=== PATIENT | female | born 1985 | race American Indian/Alaskan Native ===

== ENCOUNTER 2019-10-08 17:26 | Emergency (ER) | payer OTHER ==
[2019-10-08 17:39] VITALS: BP 133/82
--- NOTE | 2019-10-08 18:39 | Event Note ---
ED Screening Note Date of service: 10/08/19 Time: 18:35 ED Screening Note: 33 y o female presents to ED cc of chest pain and upper back pain x this morning pain was worse with lifting at work today This initial assessment/diagnostic orders/clinical plan/treatment(s) is/are subject to change based on patients health status, clinical progression and re- assessment by fellow clinical providers in the ED. Further treatment and workup at subsequent clinical providers discretion. Patient/guardian urged not to elope from the ED as their condition may be serious if not clinically assessed and managed. Initial orders include: cxr acc eval
--- NOTE | 2019-10-08 19:22 | Emergency Department Report ---
ED General Adult HPI - General Chief complaint: Chest Pain Stated complaint: CHEST PAIN/HEADACHE Time Seen by Provider: 10/08/19 19:02 Source: patient Mode of arrival: Ambulatory Limitations: No Limitations - History of Present Illness Initial comments: Patient is a 33-year-old female presents emergency room with complaints of chest pain that began this morning. She states that she started to have upper back pain yesterday. She states it is worse with movement. Patient states that she does a lot of heavy lifting at work. She states that she recently got over a cold. She denies any shortness of breath, pleuritic chest pain, nausea, vomiting, diarrhea, fever, leg swelling, recent travel, recent surgery. She denies any past medical history. She denies any allergies to medications. She states that she is on a oral control pill. She states her last menstrual cycle was last week. She states that her mother at 56 due to heart issues from diabetes complications. She is a non-smoker. She is an occasional drinker. She denies any drug use. - Related Data Previous Rx's Medication Instructions Recorded Last Taken Type Naproxen [EC-Naproxen] 500 mg PO BID PRN #14 tablet. 10/08/19 Unknown Rx methOCARBAMOL [Robaxin TAB] 500 mg PO QHS PRN #10 tab 10/08/19 Unknown Rx Allergies Allergy/AdvReac Type Severity Reaction Status Date / Time No Known Allergies Allergy Unverified 10/08/19 17:27 ED Review of Systems ROS: Stated complaint: CHEST PAIN/HEADACHE Other details as noted in HPI Comment: All other systems reviewed and negative ED Past Medical Hx - Past Medical History Previous Medical History?: No - Surgical History Past Surgical History?: No - Social History Smoking Status: Never Smoker Substance Use Type: None - Medications Home Medications: Home Medications Medication Instructions Recorded Confirmed Last Taken Type Naproxen [EC-Naproxen] 500 mg PO BID PRN #14 tablet. 10/08/19 Unknown Rx methOCARBAMOL [Robaxin TAB] 500 mg PO QHS PRN #10 tab 10/08/19 Unknown Rx ED Physical Exam - General Limitations: No Limitations General appearance: alert, in no apparent distress - Head Head exam: Present: atraumatic, normocephalic - Eye Eye exam: Present: normal appearance - ENT ENT exam: Present: mucous membranes moist - Neck Neck exam: Present: normal inspection, full ROM. Absent: tenderness - Respiratory Respiratory exam: Present: normal lung sounds bilaterally. Absent: respiratory distress, wheezes, rales, rhonchi, stridor, chest wall tenderness, accessory muscle use, decreased breath sounds, prolonged expiratory - Cardiovascular Cardiovascular Exam: Present: regular rate, normal rhythm, normal heart sounds. Absent: systolic murmur, diastolic murmur, rubs, gallop - Back Exam Back exam: Present: normal inspection, full ROM. Absent: paraspinal tenderness, vertebral tenderness - Neurological Exam Neurological exam: Present: alert, oriented X3, CN II-XII intact, normal gait. Absent: motor sensory deficit - Psychiatric Psychiatric exam: Present: normal affect, normal mood - Skin Skin exam: Present: warm, intact ED Course Vital Signs 10/08/19 10/08/19 10/08/19 17:38 18:36 20:37 Temperature 99.2 F 99.2 F Pulse Rate 98 H 100 H 88 Respiratory 20 20 16 Rate Blood Pressure 133/82 133/82 O2 Sat by Pulse 100 100 100 Oximetry ED Medical Decision Making - Lab Data Result diagrams: 10/08/19 19:17 10/08/19 19:17 Lab Results 10/08/19 10/08/19 10/08/19 Range/Units 19:17 19:17 19:17 WBC 7.0 (4.5-11.0) K/mm3 RBC 4.58 (3.65-5.03) M/mm3 Hgb 12.4 (10.1-14.3) gm/dl Hct 37.4 (30.3-42.9) % MCV 82 (79-97) fl MCH 27 L (28-32) pg MCHC 33 (30-34) % RDW 13.8 (13.2-15.2) % Plt Count 177 (140-440) K/mm3 Lymph % (Auto) 25.5 (13.4-35.0) % [place] % (Auto) 6.9 (0.0-7.3) % Eos % (Auto) 1.3 (0.0-4.3) % Baso % (Auto) 0.8 (0.0-1.8) % Lymph # 1.8 (1.2-5.4) K/mm3 [place] # 0.5 (0.0-0.8) K/mm3 Eos # 0.1 (0.0-0.4) K/mm3 Baso # 0.1 (0.0-0.1) K/mm3 Seg Neutrophils % 65.5 (40.0-70.0) % Seg Neutrophils # 4.6 (1.8-7.7) K/mm3 D-Dimer 137.30 (0-234) ng/mlDDU Sodium 140 (137-145) mmol/L Potassium 3.7 (3.6-5.0) mmol/L Chloride 104.0 (98-107) mmol/L Carbon Dioxide 22 (22-30) mmol/L Anion Gap 18 mmol/L BUN 11 (7-17) mg/dL Creatinine 0.8 (0.7-1.2) mg/dL Estimated GFR > 60 ml/min BUN/Creatinine Ratio 14 % Glucose 131 H (65-100) mg/dL Calcium 9.2 (8.4-10.2) mg/dL Magnesium 1.80 (1.7-2.3) mg/dL Total Bilirubin 0.20 (0.1-1.2) mg/dL AST 14 (5-40) units/L ALT 14 (7-56) units/L Alkaline Phosphatase 54 (35-129) units/L Total Protein 6.9 (6.3-8.2) g/dL Albumin 3.7 L (3.9-5) g/dL Albumin/Globulin Ratio 1.2 % TSH (0.270-4.200) mlU/mL HCG, Qual (Negative) 10/08/19 10/08/19 Range/Units 19:17 19:23 WBC (4.5-11.0) K/mm3 RBC (3.65-5.03) M/mm3 Hgb (10.1-14.3) gm/dl Hct (30.3-42.9) % MCV (79-97) fl MCH (28-32) pg MCHC (30-34) % RDW (13.2-15.2) % Plt Count (140-440) K/mm3 Lymph % (Auto) (13.4-35.0) % [place] % (Auto) (0.0-7.3) % Eos % (Auto) (0.0-4.3) % Baso % (Auto) (0.0-1.8) % Lymph # (1.2-5.4) K/mm3 [place] # (0.0-0.8) K/mm3 Eos # (0.0-0.4) K/mm3 Baso # (0.0-0.1) K/mm3 Seg Neutrophils % (40.0-70.0) % Seg Neutrophils # (1.8-7.7) K/mm3 D-Dimer (0-234) ng/mlDDU Sodium (137-145) mmol/L Potassium (3.6-5.0) mmol/L Chloride (98-107) mmol/L Carbon Dioxide (22-30) mmol/L Anion Gap mmol/L BUN (7-17) mg/dL Creatinine (0.7-1.2) mg/dL Estimated GFR ml/min BUN/Creatinine Ratio % Glucose (65-100) mg/dL Calcium (8.4-10.2) mg/dL Magnesium (1.7-2.3) mg/dL Total Bilirubin (0.1-1.2) mg/dL AST (5-40) units/L ALT (7-56) units/L Alkaline Phosphatase (35-129) units/L Total Protein (6.3-8.2) g/dL Albumin (3.9-5) g/dL Albumin/Globulin Ratio % TSH 0.600 (0.270-4.200) mlU/mL HCG, Qual Negative (Negative) Vital Signs 10/08/19 10/08/19 10/08/19 17:38 18:36 20:37 Temperature 99.2 F 99.2 F Pulse Rate 98 H 100 H 88 Respiratory 20 20 16 Rate Blood Pressure 133/82 133/82 O2 Sat by Pulse 100 100 100 Oximetry - EKG Data EKG shows normal: sinus rhythm, axis, intervals, QRS complexes, ST-T waves Rate: normal - EKG Data 10/08/19 20:11 LAE no STEMI - Radiology Data Radiology results: report reviewed CHEST 2 VIEWS INDICATION / CLINICAL INFORMATION: Chest pain radiating to the back which began last night.. COMPARISON: None available. FINDINGS: SUPPORT DEVICES: None. HEART / MEDIASTINUM: No significant abnormality. LUNGS / PLEURA: No significant pulmonary or pleural abnormality. No pneumothorax. ADDITIONAL FINDINGS: No significant additional findings. IMPRESSION: 1. No acute findings. Signer Name: Jeremie Goncalves MD Signed: 10/08/2019 7:27 PM Workstation Name: [id number] Transcribed By: DT Dictated By: Chema Goncalves MD Electronically Authenticated By: Chema Goncalves MD Signed Date/Time: 10/08/191926 DD/ 26 TD/TT: - Medical Decision Making Patient is a 33-year-old female presents emergency room with complaints of chest pain that began this morning. She states that she started to have upper back pain yesterday. She states it is worse with movement. Patient states that she does a lot of heavy lifting at work. She states that she recently got over a cold. She denies any shortness of breath, pleuritic chest pain, nausea, vomiting, diarrhea, fever, leg swelling, recent travel, recent surgery. She denies any past medical history. She denies any allergies to medications. She states that she is on a oral control pill. She states her last menstrual cycle was last week. She states that her mother at 56 due to heart issues from diabetes complications. She is a non-smoker. She is an occasional drinker. She denies any drug use. No abnormality on physical examination as documented in chart. Initial vitals with mild tachycardia at 100 bpm, on repeat heart rate is normal. blood pressure is normal. she denies the chest pain radiating to the back, she states that they are separate. Labs with mildly elevated blood sugar at 131. D-dimer is negative, troponin is negative. EKG with left atrial enlargement otherwise normal. Chest x-ray with no acute process. Low risk based on Wells criteria for PE. Symptoms are most likely related to muscle strain given that it is worse with movement and with lifting. She has no bony tenderness to palpation, no deformities, no neuro deficits. Given prescription for naproxen and Robaxin. advised pt to please take medication as prescribed as needed. Do not drive or operate heavy machinery while taking muscle relaxer due to potential for drowsiness. May use ice pack, heating pad, rest, Epsom salt bath. Follow-up with a primary care doctor in the next 2 to 3 days. Please watch your sugar intake and carb intake. Increase your water intake. Incorporate daily exercise. Return to the emergency room for any new or worsening symptoms. - Differential Diagnosis strain, sprain, fx, dislocation, GERD, PUD, PE, PTX, aortic dissection Critical care attestation.: If time is entered above; I have spent that time in minutes in the direct care of this critically ill patient, excluding procedure time. ED Disposition Clinical Impression: Upper back pain Chest pain Qualifiers: Chest pain type: unspecified Qualified Code(s): R07.9 - Chest pain, unspecified Disposition: TO HOME OR SELFCARE Is pt being admited?: No Does the pt Need Aspirin: No Condition: Stable Instructions: Chest Pain (ED), Costochondritis (ED), Back Pain (ED) Additional Instructions: Please take medication as prescribed as needed. Do not drive or operate heavy machinery while taking muscle relaxer due to potential for drowsiness. May use ice pack, heating pad, rest, Epsom salt bath. Follow-up with a primary care doctor in the next 2 to 3 days. Please watch your sugar intake and carb intake. Increase your water intake. Incorporate daily exercise. Return to the emergency room for any new or worsening symptoms. Prescriptions: methOCARBAMOL [Robaxin TAB] 500 mg PO QHS PRN #10 tab PRN Reason: muscle spasm Naproxen [EC-Naproxen] 500 mg PO BID PRN #14 tablet. PRN Reason: pain Referrals: PRIMARY CARE, [Primary Care Provider] - 2-3 Days Time of Disposition: 20:30 Print Language: ESTONIAN
[2019-10-08 19:32] LABS: Basophils # (Auto) 0.1 K/mm3 (0.0-0.1); Basophils % (Auto) 0.8 % (0.0-1.8); Eosinophils # (Auto) 0.1 K/mm3 (0.0-0.4); Eosinophils % (Auto) 1.3 % (0.0-4.3); Hematocrit 37.4 % (30.3-42.9); Hemoglobin 12.4 gm/dl (10.1-14.3); Lymphocytes # (Auto) 1.8 K/mm3 (1.2-5.4); Lymphocytes % (Auto) 25.5 % (13.4-35.0); Mean Corpuscular HGB Conc 33 % (30-34); Mean Corpuscular Volume 82 fl (79-97); Monocytes # (Auto) 0.5 K/mm3 (0.0-0.8); Monocytes % (Auto) 6.9 % (0.0-7.3); Platelet Count 177 K/mm3 (140-440); Red Blood Count 4.58 M/mm3 (3.65-5.03); Red Cell Distribution Width 13.8 % (13.2-15.2)
--- NOTE | 2019-10-08 19:32 | XRay Report ---
CHEST 2 VIEWS INDICATION / CLINICAL INFORMATION: Chest pain radiating to the back which began last night.. COMPARISON: None available. FINDINGS: SUPPORT DEVICES: None. HEART / MEDIASTINUM: No significant abnormality. LUNGS / PLEURA: No significant pulmonary or pleural abnormality. No pneumothorax. ADDITIONAL FINDINGS: No significant additional findings. IMPRESSION: 1. No acute findings. Signer Name: Jeremie Goncalves MD Signed: 10/08/2019 7:27 PM Workstation Name: [id number]
[2019-10-08 19:55] LABS: Alanine Aminotransferase 14 units/L (7-56); Albumin 3.7 g/dL (3.9-5); BUN/Creatinine Ratio 14; Blood Urea Nitrogen 11 mg/dL (7-17); Calcium 9.2 mg/dL (8.4-10.2); Hemolysis Index 14
== END 2019-10-08 20:37 | disposition home or self-care (01) ==
LOC: ED 17:26
DX: M54.6 Pain in thoracic spine (principal); R07.9 Chest pain, unspecified
CPT/HCPCS: 36415; 71046; 80053; 83735; 84443; 84703; 85025; 85379; 93005; 93010

== ENCOUNTER 2021-09-18 11:38 | Emergency (ER) | payer SELFPAY ==
[2021-09-18 12:34] VITALS: BP 134/88
--- NOTE | 2021-09-18 12:59 | Emergency Department Report ---
<VENU EMMANUEL L - Last Filed: 09/18/21 21:25> ED HPI - General Chief complaint: Vaginal Bleeding Stated complaint: PAIN,SPOTTING Source: patient Mode of arrival: Ambulatory Limitations: No Limitations - History of Present Illness Initial comments: 35-year-old female presents to the ED with vaginal bleeding. She states that she was at work and was heavy lifting this a.m. and started having abdominal cramping and noticed some vaginal spotting. She stated that she was sent home and was told to go to the doctor and return with restriction. She stated that she noticed some vaginal spotting but since arriving to the ED it has become vaginal bleeding.Patient had a positive test 09/08/20[facility]. She denies any nausea vomiting or diarrhea at present time. Patient is alert and oriented x4. patient respiration is 20. MD Complaint: vaginal bleeding -: This morning Location: abdomen Severity: mild Severity scale (0 -10): 4 Quality: cramping Consistency: intermittent Improves with: none Associated symptoms: vaginal bleeding. denies: nausea/vomiting, vaginal discharge, abdominal pain, dysuria, headache, vision changes, dysparuenia, seizure, shortness of breath, weakness Vaginal bleeding: light :: Yes OB History - Current : no complications OB History - Previous Pregnancies: no complications Last menstrual period: 07/26/21 Pre-kiran care: followed by OB - Related Data : 2 Para: 1 Previous Rx's Medication Instructions Recorded Last Taken Type Naproxen [EC-Naproxen] 500 mg PO BID PRN #14 tablet. 10/08/19 Unknown Rx methOCARBAMOL [Robaxin TAB] 500 mg PO QHS PRN #10 tab 10/08/19 Unknown Rx Allergies Allergy/AdvReac Type Severity Reaction Status Date / Time No Known Allergies Allergy Verified 09/18/21 12:34 ED Review of Systems Constitutional: denies: chills, fever Eyes: denies: eye pain, eye discharge, vision change ENT: denies: ear pain, throat pain Respiratory: denies: cough, shortness of breath, wheezing Cardiovascular: denies: chest pain, palpitations Endocrine: no symptoms reported Gastrointestinal: abdominal pain. denies: nausea, diarrhea Genitourinary: denies: urgency, dysuria, discharge Musculoskeletal: denies: back pain, joint swelling, arthralgia Skin: denies: rash, lesions Neurological: denies: headache, weakness, paresthesias Psychiatric: denies: anxiety, depression Hematological/Lymphatic: denies: easy bleeding, easy bruising ED Past Medical Hx - Past Medical History Previous Medical History?: No - Surgical History Past Surgical History?: No - Social History Smoking Status: Never Smoker Substance Use Type: None - Medications Home Medications: Home Medications Medication Instructions Recorded Confirmed Last Taken Type Naproxen [EC-Naproxen] 500 mg PO BID PRN #14 tablet. 10/08/19 Unknown Rx methOCARBAMOL [Robaxin TAB] 500 mg PO QHS PRN #10 tab 10/08/19 Unknown Rx ED Physical Exam - General Limitations: No Limitations General appearance: alert, in no apparent distress - Head Head exam: Present: atraumatic, normocephalic - Eye Eye exam: Present: normal appearance - ENT ENT exam: Present: mucous membranes moist - Neck Neck exam: Present: normal inspection - Respiratory Respiratory exam: Present: normal lung sounds bilaterally. Absent: respiratory distress - Cardiovascular Cardiovascular Exam: Present: regular rate, normal rhythm. Absent: systolic murmur, diastolic murmur, rubs, gallop - GI/Abdominal GI/Abdominal exam: Present: soft, normal bowel sounds - Extremities Exam Extremities exam: Present: normal inspection - Back Exam Back exam: Present: normal inspection - Neurological Exam Neurological exam: Present: alert, oriented X3 - Psychiatric Psychiatric exam: Present: normal affect, normal mood - Skin Skin exam: Present: warm, dry, intact, normal color. Absent: rash ED Medical Decision Making - Lab Data Result diagrams: 09/18/21 13:09 - Medical Decision Making 35-year-old female presents to the ED with vaginal bleeding. She states that she was at work this a.m. and started having abdominal cramping and noticed some vaginal spotting. She stated that she was sent home and was told to go to the doctor and return with restriction. She stated that she noticed some vaginal spotting but since arriving to the ED it has become vaginal bleeding.Patient had a positive test 09/08/2021 at [facility]. She denies any nausea vomiting or diarrhea at present time. Patient respiration is 20. patient is alert and oriented x4. Consult with Dr. Witt . Consulted with Dr. Watson [facility] . [place] [id number]. Patient refused to stay for surgery. Discussed with patient the risks and life- threatening nature of this procedure. Patient still continues to sign out AMA. and are aware of patient decision . Patient signed AMA form to leave the hospital. Patient is alert and oriented x4. Patient states that she is to private own [facility] [facility]. . - Differential Diagnosis Ectopic , spontaneous miscarriage, normal Critical Care Time: Yes Critical Care Time: 1 hour critical time counseling patient about ectopic and admission. Discussed the risk factors and life-threatening nature of ectopic . Patient left AMA after discuss life threating issue with patient. Dr. Zhu notified x3 for patient , ED Disposition Clinical Impression: Ectopic Qualifiers: Location of ectopic : tubal Intrauterine status: unspecified Laterality: unspecified laterality Qualified Code(s): O00.109 - Unspecified tubal without intrauterine Disposition: 07 LEFT AGAINST MEDICAL ADVICE Is pt being admited?: No Does the pt Need Aspirin: No Condition: Undetermined Additional Instructions: As we discussed, you have left the hospital/emergency room AGAINST MEDICAL ADVICE. By leaving, you risked , disability, paralysis, permanent loss of quality of life. The ER is open 24 hours a day, 7 days a week. It never closes. Please return to the emergency room right away if and when you change your mind. If you decide not to return to the emergency room, please follow-up with the listed physician referrals as soon as possible. Referrals: [facility] [Provider Group] - 3-5 Days [facility] [Provider Group] - 3-5 Days [facility] [Provider Group] - 3-5 Days Forms: AMA Form <NIMISHA WITT - Last Filed: 09/21/21 23:49> ED Review of Systems ROS: Stated complaint: PAIN,SPOTTING Other details as noted in HPI ED Course Vital Signs 09/18/21 09/18/21 12:31 13:04 Temperature 99.1 F Pulse Rate 102 H Respiratory 44 H 14 Rate Blood Pressure 134/88 O2 Sat by Pulse 100 Oximetry ED Medical Decision Making - Lab Data Result diagrams: 09/18/21 13:09 Critical care attestation.: If time is entered above; I have spent that time in minutes in the direct care of this critically ill patient, excluding procedure time. ED Disposition Is pt being admited?: No Does the pt Need Aspirin: No
[2021-09-18 13:59] LABS: Basophils % (Auto) 0.6 % (0.0-1.8); Eosinophils # (Auto) 0.1 K/mm3 (0.0-0.4); Eosinophils % (Auto) 1.2 % (0.0-4.3); Hematocrit 39.8 % (30.3-42.9); Hemoglobin 12.9 gm/dl (10.1-14.3); Lymphocytes # (Auto) 1.2 K/mm3 (1.2-5.4); Lymphocytes % (Auto) 17.7 % (13.4-35.0); Mean Corpuscular HGB Conc 32 % (30-34); Mean Corpuscular Volume 85 fl (79-97); Monocytes # (Auto) 0.4 K/mm3 (0.0-0.8); Monocytes % (Auto) 6.4 % (0.0-7.3); Platelet Count 190 K/mm3 (140-440); Red Blood Count 4.67 M/mm3 (3.65-5.03); Red Cell Distribution Width 13.3 % (13.2-15.2)
--- NOTE | 2021-09-18 14:14 | Ultrasound Report ---
ULTRASOUND OBSTETRIC INDICATION: with vaginal bleeding. TECHNIQUE: Transabdominal and Transvaginal. COMPARISON: None available. FINDINGS: GESTATIONAL SAC: A left adnexal ectopic is noted with a gestational sac diameter of 2.13 cm . YOLK SAC: No significant abnormality. EMBRYO/FETUS: A pole is seen within the left adnexal ectopic with a crown-rump length of 3.7 mm, consistent with an estimated age of 6.0 weeks. The technologist reports seeing findings s uggestive of cardiac activity, but could not measure a heart rate. ADNEXA: There is a mixed solid and cystic right adnexal lesion measuring up to 1.9 cm. Left adnexal e ctopic as above. No other significant abnormality. FREE FLUID: None. ADDITIONAL FINDINGS: Along the left uterine body is a probable fibroid measuring up to 1.8 cm. IMPRESSION: 1. Left adnexal ectopic . 2. Indeterminate complex right ovarian lesion. Reevaluation by pelvic ultrasound in 6-8 weeks is chaparro mmended. Signer Name: Reece Mota MD Signed: 09/18/2021 2:10 PM Workstation Name: [id number]
[2021-09-18 15:33] LABS: Mucus,Urine 2+ /HPF
--- NOTE | 2021-09-18 15:36 | Event Note ---
Date of service: 09/18/21 Face to Face: I personally evaluated the patient. She is found to have a tubal ectopic , with a quantitative hCG of almost 40,000. Methotrexate is not indicated. Surgical fixation and correction is indicated. I had multiple and extensive discussions with the patient regarding nature of ectopic , specifically, potentially lethal and life-threatening nature of untreated ectopic . Both myself and the nurse practitioner counseled the patient to accept admission for emergent surgical treatment. The nurse practitioner got in touch with obstetrics on-call, who is coming down to evaluate the patient. In spite of multiple attempts to children counselor the patient appropriately by myself and the nurse practitioner, the patient elected to leave AGAINST MEDICAL ADVICE. The patient is awake, alert, oriented, sober and of sound mind, and exhibits decision-making capacity she is free from distracting injury. She was counseled multiple times by myself and nurse practitioner Jeremie Davies, regarding the potentially lethal and life-threatening nature of ectopic . She still elected to leave AGAINST MEDICAL ADVICE. I also called the patient back on her listed phone number, and spoke to her on the phone twice. I specifically advised her to return to the emergency room as soon as possible and specifically advised her that untreated ectopic is life-threatening. The patient hung up the phone on me twice. ULTRASOUND OBSTETRIC INDICATION: with vaginal bleeding. TECHNIQUE: Transabdominal and Transvaginal. COMPARISON: None available. FINDINGS: GESTATIONAL SAC: A left adnexal ectopic is noted with a gestational sac diameter of 2.13 cm. YOLK SAC: No significant abnormality. EMBRYO/FETUS: A pole is seen within the left adnexal ectopic with a crown-rump length of 3.7 mm, consistent with an estimated age of 6.0 weeks. The technologist reports seeing findings suggestive of cardiac activity, but could not measure a heart rate. ADNEXA: There is a mixed solid and cystic right adnexal lesion measuring up to 1.9 cm. Left adnexal ectopic as above. No other significant abnormality. FREE FLUID: None. ADDITIONAL FINDINGS: Along the left uterine body is a probable fibroid measuring up to 1.8 cm. IMP RESSION: 1. Left adnexal ectopic . 2. Indeterminate complex right ovarian lesion. Reevaluation by pelvic ultrasound in 6-8 weeks is recommended. Signer Name: Reece Mota MD Signed: 09/18/2021 1:10 PM Workstation Name: [id number] Vital Signs 09/18/21 09/18/21 12:31 13:04 Temperature 99.1 F Pulse Rate 102 H Respiratory 44 H 14 Rate Blood Pressure 134/88 O2 Sat by Pulse 100 Oximetry Lab Results 09/18/21 09/18/21 09/18/21 Range/Units 12:51 13:09 13:09 WBC 6.9 (4.5-11.0) K/mm3 RBC 4.67 (3.65-5.03) M/mm3 Hgb 12.9 (10.1-14.3) gm/dl Hct 39.8 (30.3-42.9) % MCV 85 (79-97) fl MCH 28 (28-32) pg MCHC 32 (30-34) % RDW 13.3 (13.2-15.2) % Plt Count 190 (140-440) K/mm3 Lymph % (Auto) 17.7 (13.4-35.0) % [place] % (Auto) 6.4 (0.0-7.3) % Eos % (Auto) 1.2 (0.0-4.3) % Baso % (Auto) 0.6 (0.0-1.8) % Lymph # (Auto) 1.2 (1.2-5.4) K/mm3 Preston # (Auto) 0.4 (0.0-0.8) K/mm3 Eos # (Auto) 0.1 (0.0-0.4) K/mm3 Baso # (Auto) 0.0 (0.0-0.1) K/mm3 Seg Neutrophils % 74.1 H (40.0-70.0) % Seg Neutrophils # 5.1 (1.8-7.7) K/mm3 HCG, Qual Positive (Negative) HCG, Quant (0-4) mIU/mL Urine Color Yellow (Yellow) Urine Turbidity Turbid (Clear) Urine pH 5.0 (5.0-7.0) Ur Specific [place] 1.030 (1.003-1.030) Urine Protein 30 mg/dl (Negative) mg/dL Urine Glucose (UA) Neg (Negative) mg/dL Urine Ketones 20 (Negative) mg/dL Urine Blood Sm (Negative) Urine Nitrite Neg (Negative) Ur Reducing Substances Not Reportable Urine Bilirubin Neg (Negative) Urine Ictotest Not Reportable Urine Urobilinogen < 2.0 (<2.0) mg/dL Ur Leukocyte Esterase Neg (Negative) Urine WBC (Auto) 1.0 (0.0-6.0) /HPF Urine RBC (Auto) 14.0 (0.0-6.0) /HPF U Epithel Cells (Auto) 2.0 (0-13.0) /HPF Urine Mucus 2+ /HPF Blood Type Antibody Screen 09/18/21 09/18/21 Range/Units 13:09 13:16 WBC (4.5-11.0) K/mm3 RBC (3.65-5.03) M/mm3 Hgb (10.1-14.3) gm/dl Hct (30.3-42.9) % MCV (79-97) fl MCH (28-32) pg MCHC (30-34) % RDW (13.2-15.2) % Plt Count (140-440) K/mm3 Lymph % (Auto) (13.4-35.0) % Preston % (Auto) (0.0-7.3) % Eos % (Auto) (0.0-4.3) % Baso % (Auto) (0.0-1.8) % Lymph # (Auto) (1.2-5.4) K/mm3 Preston # (Auto) (0.0-0.8) K/mm3 Eos # (Auto) (0.0-0.4) K/mm3 Baso # (Auto) (0.0-0.1) K/mm3 Seg Neutrophils % (40.0-70.0) % Seg Neutrophils # (1.8-7.7) K/mm3 HCG, Qual (Negative) HCG, Quant 23798 H (0-4) mIU/mL Urine Color (Yellow) Urine Turbidity (Clear) Urine pH (5.0-7.0) Ur Specific [place] (1.003-1.030) Urine Protein (Negative) mg/dL Urine Glucose (UA) (Negative) mg/dL Urine Ketones (Negative) mg/dL Urine Blood (Negative) Urine Nitrite (Negative) Ur Reducing Substances Urine Bilirubin (Negative) Urine Ictotest Urine Urobilinogen (<2.0) mg/dL Ur Leukocyte Esterase (Negative) Urine WBC (Auto) (0.0-6.0) /HPF Urine RBC (Auto) (0.0-6.0) /HPF U Epithel Cells (Auto) (0-13.0) /HPF Urine Mucus /HPF Blood Type O POSITIVE Antibody Screen Negative
[2021-09-18 15:45] LABS: Bilirubin,Urine NEG (Negative); Blood,Urine SM (Negative); Color,Urine Yellow (Yellow); Urobilinogen,Urine < 2.0 mg/dL (<2.0)
== END 2021-09-18 16:21 | disposition left against medical advice (07) ==
LOC: ED 11:38
DX: O00.91 Unspecified ectopic pregnancy with intrauterine pregnancy (principal)
CPT/HCPCS: 36415; 76801; 76817; 81001; 84702; 84703; 85025; 86850; 86900; 86901; 99284